=== PATIENT | male | born 1950 | race Caucasian/White ===

== ENCOUNTER 2018-05-29 22:17 | Emergency (ER) | payer MEDICARE ==
[2018-05-29] MEDS: SOD CHLORIDE 0.9% 1,000 ML IV (22:36)
[2018-05-29] MEDS: DIPHTH/TET/ACEL PERTUSS (ADULT) 0.5 ML VIAL IM* (22:37)
[2018-05-29 22:41] LABS: ADD MAN DIFF? NO
[2018-05-29] MEDS: CEFAZOLIN 2 GM/50 ML (PMX) 50 ML IVPB (22:43)
[2018-05-29 22:44] LABS: WHITE BLOOD COUNT 9.4 10^3/ul (4.8-10.8)
[2018-05-29 22:44] LABS: BASOPHIL # 0.1 10^3/ul (0.0-0.1); BASOPHILS % 0.7 % (0.0-2.0); EOSINOPHILS # 0.2 10^3/ul (0.0-0.5); EOSINOPHILS % 1.7 % (0.0-7.0); HEMATOCRIT 47.4 % (42.0-52.0); HEMOGLOBIN 15.7 g/dl (14.0-18.0); LYMPHOCYTES # 1.7 10^3/ul (0.8-2.9); LYMPHOCYTES % 18.1 % (15.0-51.0); MEAN CORPUSCULAR HEMOGLOBIN 31.7 pg (29.0-33.0); MEAN CORPUSCULAR HGB CONC 33.1 g/dl (32.0-37.0); MEAN CORPUSCULAR VOLUME 95.6 fl (82.0-101.0); MEAN PLATELET VOLUME 10.3 fl (7.4-10.4); MONOCYTE # 0.7 10^3/ul (0.3-0.9); NEUTROPHIL # 6.7 10^3/ul (1.6-7.5); NEUTROPHILS % 71.3 % (39.0-77.0); PLATELET COUNT 204 10^3/UL (140-415); RED BLOOD COUNT 4.96 10^6/ul (4.70-6.10); RED CELL DISTRIBUTION WIDTH 15.4 % (11.5-14.5)
[2018-05-29 23:01] LABS: ALANINE AMINOTRANSFERASE 37 IU/L (13-69); ALBUMIN 4.8 g/dl (3.3-4.9); ALKALINE PHOSPHATASE 79 IU/L (42-121); ANION GAP 17 (5-13); ASPARTATE AMINO TRANSFERASE 48 IU/L (15-46); BILIRUBIN,INDIRECT 0.2 mg/dl (0-1.1); BILIRUBIN,TOTAL 0.2 mg/dl (0.2-1.3); BLOOD UREA NITROGEN 15 mg/dl (7-20); CALCIUM 9.3 mg/dl (8.4-10.2); CARBON DIOXIDE 19 mmol/L (21-31); CHLORIDE 106 mmol/L (97-110); CREATININE 1.47 mg/dl (0.61-1.24); Estimated GFR 48 mL/min (>60); GLUCOSE 125 mg/dl (70-220); POTASSIUM 3.5 mmol/L (3.5-5.1); SODIUM 142 mmol/L (135-144); TOTAL PROTEIN 8.5 g/dl (6.1-8.1)
[2018-05-29 23:04] LABS: INR 0.85; PARTIAL THROMBOPLASTIN TIME 23.9 Sec (23.0-35.0); PROTIME 11.7 Sec (11.9-14.9); PT RATIO 0.9
[2018-05-29] MEDS ORDERED: LIDOCAINE 1%/EPI (MDV) 50 ML INJ INJ (23:30)
[2018-05-30] MEDS: LIDOCAINE 1%/EPI (1:100,000) (MDV) 20 ML INJ (00:02)
== END 2018-05-30 01:44 | disposition home or self-care (01) ==
LOC: E/R 22:17
DX: S21.122A Laceration with foreign body of left front wall of thorax without penetration into thoracic cavity, initial encounter (principal); R07.9 Chest pain, unspecified; X99.1XXA Assault by knife, initial encounter; Z23 Encounter for immunization; Z87.891 Personal history of nicotine dependence
CPT/HCPCS: 12002; 70450; 71045; 73030-RT; 80048; 80076; 85025; 85610; 85730; 90471; 90715; 96374; 99291-25